=== PATIENT | male | born 1985 | race African-American/Black ===

== ENCOUNTER 2020-05-28 00:43 | Emergency (ER) | payer OTHER ==
[~2020-05-28] VITALS: Ht 190.5 cm; Wt 65.2 kg
[2020-05-28] MEDS ORDERED: KETOROLAC TROMETHAMINE 10 MG TAB PO ONE (03:00)
--- NOTE | 2020-05-28 04:18 | REPVR ---
PROCEDURE INFORMATION: Exam: XR Lumbosacral Spine, 4 or 5 Views Exam date and time: 05/28/2020 3:29 AM Age: 34 years old Clinical indication: Low back pain; Additional info: Pain, remote trauma TECHNIQUE: Imaging protocol: XR of the lumbosacral spine, 4 or 5 views. COMPARISON: No relevant prior studies available. FINDINGS: Bones/joints: Normal. No acute fracture. Normal alignment. Soft tissues: Unremarkable. IMPRESSION: No acute findings. Electronically signed by: Adalberto Maier On 05/28/2020 04:17:25 AM
[2020-05-28] MEDS ORDERED: CYCL-707 PO (04:35)
[2020-05-28] MEDS ORDERED: KETO10TAB PO (04:35)
[2020-05-28 04:40] VITALS: BP 133/56
[2020-05-28] MEDS ORDERED: CYCLOBENZAPRINE 10MG TABLET PO ONE (04:45)
== END 2020-05-28 04:48 | disposition home or self-care (01) ==
LOC: M ED 00:43
DX: M54.5 Low back pain (principal)

== ENCOUNTER 2020-07-20 22:05 | Emergency (ER) | payer OTHER ==
[~2020-07-20] VITALS: Ht 190.5 cm; Wt 63.6 kg
[~2020-07-20 22:05] MED LIST: CYCL-707 PO; KETO10TAB PO
--- OUTSIDE RECORDS SUMMARY | 2020-07-20 22:13 | CCD ---
Author Author [facility] Organization [facility] Address Unknown Phone Unavailable Support Name Relationship Address Phone [facility] Next Of Kin [address] [place] [address] Unavailable [place]IVE [place]OMAS[facility] Next Of Kin [address] [facility] [address] [place], [place] [phone] Re-disclosure Warning The records that you are about to access may contain information from federally-assisted alcohol or drug abuse programs. If such information is present, then the following federally mandated warning applies: This information has been disclosed to you from records protected by federal confidentiality rules (42 CFR part 2). The federal rules prohibit you from making any further disclosure of this information unless further disclosure is expressly permitted by the written consent of the person to whom it pertains or as otherwise permitted by 42 CFR part 2. A general authorization for the release of medical or other information is NOT sufficient for this purpose. The Federal rules restrict any use of the information to criminally investigate or prosecute any alcohol or drug abuse patient.The records that you are about to access may contain highly sensitive health information, the redisclosure of which is protected by Article 27-F of the [facility] Public Health law. If you continue you may have access to information: Regarding HIV / AIDS; Provided by facilities licensed or operated by the [facility] Office of Mental Health; or Provided by the [facility] Office for People With Developmental Disabilities. If such information is present, then the following [facility] mandated warning applies: This information has been disclosed to you from confidential records which are protected by state law. State law prohibits you from making any further disclosure of this information without the specific written consent of the person to whom it pertains, or as otherwise permitted by law. Any unauthorized further disclosure in violation of state law may result in a fine or fdc sentence or both. A general authorization for the release of medical or other information is NOT sufficient authorization for further disc losure. Insurance Providers Payer name Policy type / Coverage type Policy ID Covered alliance party ID Covered alliance party's relationship to torres Policy Torres Plan Information [facility] ACTIVE DUTY [id number]
[2020-07-20] MEDS ORDERED: ACET1TAB55 PO (22:17)
[2020-07-20] MEDS ORDERED: LIDOCAINE 5% (LIDODERM) PATCH TD ONE (22:45)
--- NOTE | 2020-07-20 23:07 | REPVR ---
PROCEDURE INFORMATION: Exam: XR Right Ribs with PA Chest, 3 Views Exam date and time: 07/20/2020 10:46 PM Age: 34 years old Clinical indication: Chest wall pain; Right; Additional info: Fall, PT tender, hurts to breathe TECHNIQUE: Imaging protocol: XR Right ribs 3 views with PA chest. COMPARISON: No relevant prior studies available. FINDINGS: Lungs: Unremarkable. No consolidation. Pleural spaces: Unremarkable. No pleural effusion. No pneumothorax. Heart/Mediastinum: Unremarkable. No cardiomegaly. Bones/joints: Unremarkable. No rib fractures. IMPRESSION: 1. Negative chest. 2. Negative right ribs. No fractures. Electronically signed by: Dennis Magaña On 07/20/2020 23:06:49 PM
[2020-07-20] MEDS ORDERED: NAPR-837 PO (23:17)
[2020-07-20] MEDS ORDERED: ASPE4PAD TOP (23:17)
--- OUTSIDE RECORDS SUMMARY | 2020-07-20 23:42 | CCD ---
Author Author [facility] Organization [facility] Address Unknown Phone Unavailable Support Name Relationship Address Phone [facility] Next Of Kin [address] [place] [address] Unavailable LIVE THOMAS[place] Next Of Kin [address] [facility] [address] [address] [place], [place] [phone] Re-disclosure Warning The records that you are [...] is protected by Article 27-F of the [facility] Public Health law. If you continue you may have access to information: Regarding HIV / AIDS; Provided by facilities licensed or operated by the [facility] Office of Mental Health; or Provided by the [facility] Office for People With Developmental Disabilities. If such information is present, then the following [facility] mandated warning applies: This information has [...] law may result in a fine or prison sentence or both. A general authorization for the release of medical or other information is NOT sufficient authorization for further disc losure. Insurance Providers Payer name Policy type / Coverage type Policy ID Covered constitution party ID Covered constitution party's relationship to torres Policy Torres Plan Information [facility] ACTIVE DUTY [id number]
[2020-07-20 23:49] VITALS: BP 124/62
[2020-07-21] MEDS ORDERED: **NOTE PATIENT COMMENT** MISC XX SCH (21:00)
== END 2020-07-20 23:58 | disposition home or self-care (01) ==
LOC: M ED 22:05
DX: S20.211A Contusion of right front wall of thorax, initial encounter (principal); W01.0XXA Fall on same level from slipping, tripping and stumbling without subsequent striking against object, initial encounter; Y92.89 Other specified places as the place of occurrence of the external cause; Y93.02 Activity, running; Y99.9 Unspecified external cause status

== ENCOUNTER 2020-07-29 07:00 | Emergency (ER) | payer OTHER ==
[~2020-07-29] VITALS: Ht 190.5 cm; Wt 66.4 kg
[~2020-07-29 07:00] MED LIST changes: +ACET1TAB55 PO; +ASPE4PAD TOP; +NAPR-837 PO
--- OUTSIDE RECORDS SUMMARY | 2020-07-29 07:07 | CCD ---
Author Author [facility] Organization [facility] Address Unknown Phone Unavailable Support Name Relationship Address Phone [facility] Next Of Kin [address] [place] [address] Unavailable LIVE THOMASON Next Of Kin [address] [facility] [address] [place], [place] [phone] Re-disclosure Warning The records that you are [...] is protected by Article 27-F of the [facility] Public Health law. If you continue you may have access to information: Regarding HIV / AIDS; Provided by facilities licensed or operated by the [facility] Office of Mental Health; or Provided by the [facility] Office for People With Developmental Disabilities. If such information is present, then the following [facility] mandated warning applies: This information has been [...] law may result in a fine or mcfp sentence or both. A general authorization for the release of medical or other information is NOT sufficient authorization for further disc losure. Insurance Providers Payer name Policy type / Coverage type Policy ID Covered green party ID Covered green party's relationship to torres Policy Torres Plan Information [facility] ACTIVE DUTY [id number]
[2020-07-29] MEDS ORDERED: diazePAM 10MG/2ML SYRINGE (J3360 PER 5MG) IV ONE (07:30)
[2020-07-29 08:07] LABS: BASO % 0.5 % (0.0-1.0); EOS # 0.2 10^3/uL (0.0-0.5); EOS % 2.5 % (0.0-3.0); HEMATOCRIT 37.3 % (42.0-52.0); HEMOGLOBIN 12.6 g/dl (13.5-17.5); LYMPH # 2.1 10^3/uL (1.5-5.0); LYMPH % 35.4 % (24.0-44.0); MEAN CORPUSCULAR HGB CONC 33.8 g/dl (32.0-36.5); MEAN CORPUSCULAR VOLUME 91.6 fl (80.0-96.0); MONO # 0.6 10^3/uL (0.0-0.8); NEUTROPHILS % 51.4 % (36.0-66.0); PLATELET COUNT, AUTOMATED 162 10^3/uL (150-450); RED BLOOD COUNT 4.07 10^6/uL (4.30-6.10); WHITE BLOOD COUNT 5.9 10^3/uL (4.0-10.0)
[2020-07-29 08:29] LABS: INR 1.06
[2020-07-29 08:30] LABS: PARTIAL THROMBOPLASTIN TIME 27.5 SECONDS (24.2-38.5)
[2020-07-29 08:33] LABS: ALBUMIN 4.2 GM/DL (3.2-5.2); ALT/SGPT 18 U/L (12-78); BILIRUBIN,DIRECT 0.2 MG/DL (0.0-0.2); BILIRUBIN,TOTAL 0.7 MG/DL (0.2-1.0); CK-MB VALUE MASS 1.4 NG/ML (<3.6); CPK CREATINE PHOSPHOKINASE 175 U/L (39-308); D-DIMER QUANT < 270.0 ng/ml (<500); TOTAL PROTEIN 7.1 GM/DL (6.4-8.2); TROPONIN I < 0.02 NG/ML (< 0.10)
--- OUTSIDE RECORDS SUMMARY | 2020-07-29 08:42 | CCD ---
Author Author [facility] Organization [facility] Address Unknown Phone Unavailable Support Name Relationship Address Phone [facility] Next Of Kin [address] [place] [address] Unavailable LIVE THOMASON Next Of Kin [address] [facility] [address] [place], [place] [phone] Re-disclosure Warning The records that you are [...] is protected by Article 27-F of the [facility] Public Health law. If you continue you may have access to information: Regarding HIV / AIDS; Provided by facilities licensed or operated by the [facility] Office of Mental Health; or Provided by the [facility] Office for People With Developmental Disabilities. If such information is present, then the following [facility] mandated warning applies: This information has been [...] law may result in a fine or fpc sentence or both. A general authorization for the release of medical or other information is NOT sufficient authorization for further disc losure. Insurance Providers Payer name Policy type / Coverage type Policy ID Covered republican ID Covered republican's relationship to torres Policy Torres Plan Information [facility] ACTIVE DUTY [id number]
--- NOTE | 2020-07-29 09:01 | REP ---
INDICATION: right lower chest discomfort, fall 1 week ago COMPARISON: 07/20/2020 TECHNIQUE: PA and lateral. FINDINGS: The mediastinum and cardiac silhouette are normal. The lung jennings are clear and without acute consolidation, effusion, or pneumothorax. The skeletal structures are intact and essentially normal. A very subtle nondisplaced injury along the posterior aspect of the right 8th rib cannot be excluded and should be correlated with the patient's prior mechanism of injury and point of tenderness. IMPRESSION: No acute cardiopulmonary process. As above. <Electronically signed by Johnson Dunn > 07/29/20 [id number]
[2020-07-29 09:19] VITALS: BP 113/69
--- NOTE | 2020-07-29 09:41 | ECGEPIP ---
[facility] - ED Test Date: 2020-07-29 Pat Name: KEMAR GREENFIELD Department: Room: - Gender: Male Juvenile Justice Officer: DANIEL : 1985 Requested By: RITO Shah PA-C Order Number: [id number] Reading MD: Omar Vega Measurements Intervals [place] Rate: 67 P: 14 UT: 163 QRS: 71 QRSD: 86 T: 57 QT: 375 QTc: 397 Interpretive Statements SINUS RHYTHM INCOMPLETE RIGHT BUNDLE BRANCH BLOCK BENIGN EARLY REPOLARIZATION NO PRIORS FOR COMPARISON Electronically Signed on 07-29-2020 9:40:54 EST by Omar Vega
== END 2020-07-29 09:27 | disposition home or self-care (01) ==
LOC: M ED 07:00
DX: I45.19 Other right bundle-branch block (principal); S22.39XA Fracture of one rib, unspecified side, initial encounter for closed fracture; W19.XXXA Unspecified fall, initial encounter; Y92.9 Unspecified place or not applicable; Y93.9 Activity, unspecified; Y99.9 Unspecified external cause status; R51.9 Headache, unspecified; Z79.899 Other long term (current) drug therapy
CPT/HCPCS: 71046; 80047; 80076; 82550; 82553; 84484; 85025; 85379; 85610; 85730; 93005; 96374; 99284; J3360